=== PATIENT | male | born 1945 | race Caucasian/White ===

== ENCOUNTER 2023-01-26 06:05 | Emergency (ER) | payer OTHER, SELFPAY ==
--- NOTE | 2023-01-26 06:30 | PC.NURSE ---
[facility] called and will accept pt. Case report # [id number].
--- NOTE | 2023-01-26 06:40 | ED_ITS ---
HPI - CPR General Chief Complaint: Cardiac Arrest/CPR Stated Complaint: cardiac arrest Time Seen by Provider: 01/26/23 06:23 Source: EMS and old records reviewed Mode of arrival: EMS Limitations: other (ongoing CPR) History of Present Illness HPI narrative: 77 yo male with PMH of seizures, TBI, CAD s/p PCI, DM, HTN, HLD here after fall at SNF now with prolonged prehospital CPR with asystole. Initial call for fall at 450am and then went into cardiac arrest at 536 with BLS crew and needed intercept with ALS - asytole with ALS 5 epi, intubated, asystole the entire time. complaint: other (fall and then arrest) Onset (ago): minute(s) (536am) Timing confirmed by: other (EMS) Place: [place] Bystander CPR performed: Yes AED applied by bystander/carbon paper coating machine setter: Yes Shock advised: No Initial findings in the field: no pulse and other rhythm (asystole) ROSC in the field: No Associated injuries: Yes Associated symptoms: trauma (occurred after fall and facial trauma) Known history of: CAD Treatments prior to arrival: intubation, chest compressions and epinephrine mgs # (5) Related Data Allergies Allergy/AdvReac Type Severity Reaction Status Date / Time Unable to Assess Allergy Verified 01/26/23 06:56 Review of Systems Review of Systems: ROS unable to be obtained due to ongoing CPR [facility] Past Medical History Source: old records reviewed Medical History CHF (congestive heart failure) HTN (hypertension) HLD (hyperlipidemia) CKD (chronic kidney disease) COPD (chronic obstructive pulmonary disease) CAD (coronary artery disease) TBI (traumatic brain injury) Seizure BPH (benign prostatic hyperplasia) Diabetes Social History Social History (Updated 01/26/23 @ 06:42 by Nona Moe DO) Patient Tobacco Use Status: Tobacco use Unknown Advance Directives: No Physical Exam Vital Signs: Vital Signs: BMI result Body Mass Index 35.9 Appearance: unresponsive ongoing CPR Eyes: Pupils fixed and dilated ENT: Pharynx normal. ETT in place, blood from nose, trauma to face, dried blood on face contusions to R side of face and nose Neck: Normal inspection. Neck supple. CVS: mottled, no pulses felt, laurie device in place Respiratory: no spontaneous respirations Abdomen: Soft and atraumatic Skin: Skin cool and mottled : ray in place Extremities: 1+ pitting lower ext Neuro: no response to painful stimuli. Course Course Course Narrative: pending call back from ME call back from [facility] 738am accepted Dr. Yaa Matute Medical Decision Making Medical Decision Making MDM Narrative: 77 yo male with PMH of seizures, TBI, CAD s/p PCI, DM, HTN, HLD here after fall at SNF now with prolonged prehospital CPR with asystole - estimated CPR 45 minutes without ROSC and asystole. Unsure of cause but will involve ME of note patient was brought in with a different patients name and [facility]OL[facility] so we had to contact [facility]. I did notify his HCP and emergency contact Lela. Looks like he just left inpatient [facility] for UTI and rhabdo s/p fall was admitted to [facility] on 01/25. resuscitative efforts held after 45 minutes without ROSC and efforts deemed futile 611am Differential Diagnosis Differential Diagnoses: The differential diagnosis associated with the presentation includes CPR Lab Data Labs: Lab Results 01/26/23 Range/Units 06:09 POC Glucose 186 H (60-115) mg/dL Independent Historian Clinical information obtained from an independent historian. History obtained from or confirmed by: EMS External Record Review External record reviewed: Outpatient record Procedures Procedure Narrative Procedure Narrative: bedside US 611am - absent cardiac activity with clotted blood in chambers. Critical Care Time Critical Care Time Critical Care Time: Yes Total Critical Care Time: 35 Attestation: review of records, call to ME and HCP, notification of I attest to this time spent taking care of the patient Discharge Plan Discharge Clinical Impression: Cardiac arrest Patient Disposition: Date/Time: 01/26/23 06:11
[2023-01-26 06:46] VITALS: BMI 35.9
[2023-01-26 06:48] LABS: Glucose, Whole Blood 186 mg/dL (60-115)
--- NOTE | 2023-01-26 07:19 | MHC.EDTECH ---
Call out to Respiratory Therapy Director @[phone] gave demographics to
== END 2023-01-26 08:50 | disposition expired ==
PROVIDERS: Emergency Provider Emergency Medicine; PCP Family Medicine
DX: I46.9 Cardiac arrest, cause unspecified (principal); S00.83XA Contusion of other part of head, initial encounter; S00.33XA Contusion of nose, initial encounter; W19.XXXA Unspecified fall, initial encounter; R04.0 Epistaxis; R60.0 Localized edema; E11.22 Type 2 diabetes mellitus with diabetic chronic kidney disease; I13.0 Hypertensive heart and chronic kidney disease with heart failure and stage 1 through stage 4 chronic kidney disease, or unspecified chronic kidney disease; N18.9 Chronic kidney disease, unspecified; I50.9 Heart failure, unspecified; E78.5 Hyperlipidemia, unspecified; Z87.820 Personal history of traumatic brain injury; Y93.9 Activity, unspecified; Y92.129 Unspecified place in nursing home as the place of occurrence of the external cause; Y99.9 Unspecified external cause status
CPT/HCPCS: 82947; 96374; 99282; 99285; J0171